=== PATIENT | female | born 1970 | race Caucasian/White ===

== ENCOUNTER 2018-02-03 05:55 | Day surgery (SDC) | payer BC ==
[~2018-02-03] VITALS: Ht 170.2 cm; Wt 65.3 kg
[~2018-02-03 05:55] MED LIST: CEFAZOLIN SOD 1 GM/ ISO 50 ML PREMIX IV ONE
[2018-02-03 06:12] LABS: HCG,QUAL RESULT NEGATIVE (NEGATIVE)
[2018-02-03] MEDS ORDERED: CEFAZOLIN 1 GM IVPB PREMIX 50 ML IV ONE (07:14)
[2018-02-03] MEDS ORDERED: LR 1,000 ML IV SCH (08:04)
[2018-02-03] MEDS ORDERED: SEVOFLURANE 15 MIN GAS INH ONE (08:15)
[2018-02-03] MEDS ORDERED: NS IRRIG SOLN 1000 ML IR ONE (08:15)
[2018-02-03] MEDS ORDERED: ONDANSETRON HCL 4 MG/2 ML VIAL IVP PRN (08:15)
[2018-02-03] MEDS ORDERED: MORPHINE 4 MG/ML INJ. SYRINGE IVP PRN ×2 (08:15)
[2018-02-03] MEDS ORDERED: DEXAMETHASONE SOD PHOSPHATE 4 MG/ML VIAL ONE (08:15)
[2018-02-03] MEDS ORDERED: MORPHINE SULFATE 10 MG/ML VIAL IVP PRN (08:15)
[2018-02-03] MEDS ORDERED: fentaNYL CITRATE/PF 100 MCG/2 ML AMP ONE (08:15)
[2018-02-03] MEDS ORDERED: LR 1,000 ML IV.SOLN IV ONE (08:15)
[2018-02-03] MEDS ORDERED: MEPERIDINE HCL/PF 25 MG/ML DISP.SYRIN IVP PRN (08:15)
[2018-02-03] MEDS ORDERED: ROCURONIUM BROMIDE 10 MG/ML (ZEMURON) ONE (08:15)
[2018-02-03] MEDS ORDERED: ONDANSETRON HCL 4 MG/2 ML VIAL ONE (08:15)
[2018-02-03] MEDS ORDERED: KETOROLAC TROMETHAMINE 30 MG VIAL ONE (08:15)
[2018-02-03] MEDS ORDERED: MIDAZOLAM HCL 5 MG/ML VIAL (VERSED) IV ONE (08:15)
[2018-02-03] MEDS ORDERED: PROPOFOL 200MG/ 20ML VIAL (DIPRIVAN) IV ONE (08:15)
[2018-02-03 09:08] VITALS: BP_SYST 106
[2018-02-03] MEDS ORDERED: OXYCODONE/ACETAMINOPHEN 5-325 TABLET PO PRN (10:15)
[2018-02-03] MEDS ORDERED: HYDROcodone/ACETAMIN 5-325 MG TAB (NORCO/ VICODIN) PO PRN (10:15)
== END 2018-02-03 10:40 | disposition home or self-care (01) ==
LOC: SDS 05:55 → SMU 05:55 → SDS 10:40
PROVIDERS: ATTEND Specialist
DX: N84.0 Polyp of corpus uteri (principal); Z98.890 Other specified postprocedural states; E03.9 Hypothyroidism, unspecified; Z79.899 Other long term (current) drug therapy; F32.9 Major depressive disorder, single episode, unspecified; F41.9 Anxiety disorder, unspecified
CPT/HCPCS: 58563; 84703; 88305; J0690; J1100; J1885; J2250; J2405; J2704; J3010; J7120